=== PATIENT | male | born 1980 | race African-American/Black ===

== ENCOUNTER 2019-09-15 12:16 | Emergency (ER) | payer SELFPAY ==
--- NOTE | 2019-09-15 12:25 | EDM.PDOCBH ---
ED HPI GENERAL MEDICAL PROBLEM - General Chief Complaint: Behavioral/Psych Stated Complaint: PSYCH Time Seen by Provider: 09/15/19 12:25 Source of Information: Reports: Patient History Limitations: Reports: No Limitations - History of Present Illness INITIAL COMMENTS - FREE TEXT/NARRATIVE: HISTORY AND PHYSICAL: History of present illness: Patient is a 38-year-old male who presents to the emergency room by law enforcement for medical screening exam. Patient states that he called a crisis line which she was familiar with in [facility]. He had called this crisis line as he states he is very frustrated and was looking for someone to help him with some legal questions he had regarding child support. He states over the past 5 years he has had problems with his now ex- regarding child support. He has used this crisis line before and states he had felt better after talking with them about his stressors. He called the crisis line today and states he was upset as he was not able to get answers with whom to contact about his child support. Supposedly they had asked if he was suicidal and he made the comment that he was so frustrated he "just might be". The [place] support line called our local PD who then went to check on the patient. Patient denied having any thoughts of self-harm or suicide. He states he was frustrated with trying to get answers regarding some legalities of his child support. Review of systems: As per history of present illness and below otherwise all systems reviewed and negative. Past medical history: As per history of present illness and as reviewed below otherwise noncontributory. Surgical history: As per history of present illness and as reviewed below otherwise noncontributory. Social history: See social history for further information Family history: As per history of present illness and as reviewed below otherwise noncontributory. Physical exam: General: Well developed and well nourished 38-year-old -[place] male. Alert and oriented. Nontoxic appearing and in no acute distress. HEENT: Atraumatic, normocephalic, pupils equal and reactive bilaterally, negative for conjunctival pallor or scleral icterus, mucous membranes moist, TMs normal bilaterally, throat clear, neck supple, nontender, trachea midline. No drooling or trismus noted. No meningeal signs. No hot potato voice noted. Lungs: Clear to auscultation, breath sounds equal bilaterally, chest nontender. Heart: S1S2, regular rate and rhythm without overt murmur Abdomen: Soft, nondistended, nontender. Negative for masses or hepatosplenomegaly. Negative for costovertebral tenderness. Pelvis: Stable nontender. Skin: Intact, warm, dry. No lesions or rashes noted. Extremities: Atraumatic, moves all extremities per self without difficulty or deficits, negative for cords or calf pain. Neurovascular unremarkable. Neuro: Awake, alert, oriented. Cranial nerves II through XII unremarkable. Cerebellum unremarkable. Motor and sensory unremarkable throughout. Exam nonfocal. Notes: Rule out development officer who is with the patient states he has spent the last hour with him and has no concerns of him being suicidal. He is not under arrest but rather he is here to make sure the patient has a ride back home as he is the one who brought him for medical screening exam. Patient was asked on multiple occasions by different people if he had any intention of self-harm or suicide and he refuses. He states he is a spiritual man and is against suicide. Vital signs are stable. I do not feel this man is a threat to himself or others. Supportive care measures were reviewed and discussed. Voices understanding and is agreeable to plan of care. Denies any further questions or concerns at this time. Diagnostics: None Therapeutics: None Prescription: None Impression: Encounter for medical screening exam Stress Plan: 1. You have contracted for safety. If for some reason you feel unsafe or have thoughts of harming yourself, please contact the crisis line. 2. Return to the ED as needed and as discussed. Definitive disposition and diagnosis as appropriate pending reevaluation and review of above. - Related Data Allergies Allergy/AdvReac Type Severity Reaction Status Date / Time No Known Allergies Allergy Verified 09/15/19 12:29 Home Meds: Home Meds . [No Known Home Meds] 09/15/19 [History] ED ROS GENERAL - Review of Systems Review Of Systems: Comprehensive ROS is negative, except as noted in HPI. ED EXAM, BEHAVIORAL HEALTH - Physical Exam Exam: See Below (See dictation) COURSE, BEHAVIORAL HEALTH COMP - Course Vital Signs: Last Vital Signs Temp 98.2 F 09/15/19 12:52 Pulse 78 09/15/19 12:52 Resp 16 09/15/19 12:52 BP 142/84 H 09/15/19 12:52 Pulse Ox 96 09/15/19 12:52 Departure - Departure Time of Disposition: 12:39 Disposition: Home, Self-Care 01 Clinical Impression: Stress due to family tension, Encounter for medical screening examination - Discharge Information Instructions: Medical Screening Exam Referrals: PCP,None [Primary Care Provider] - Forms: ED Department Discharge Additional Instructions: The following information is given to patients seen in the emergency department who are being discharged to home. This information is to outline your options for follow-up care. We provide all patients seen in our emergency department with a follow-up referral. The need for follow-up, as well as the timing and circumstances, are variable depending upon the specifics of your emergency department visit. If you don't have a primary care physician on staff, we will provide you with a referral. We always advise you to contact your personal physician following an emergency department visit to inform them of the circumstance of the visit and for follow-up with them and/or the need for any referrals to a consulting specialist. The emergency department will also refer you to a specialist when appropriate. This referral assures that you have the opportunity for follow-up care with a specialist. All of these measure are taken in an effort to provide you with optimal care, which includes your follow-up. Under all circumstances we always encourage you to contact your private physician who remains a resource for coordinating your care. When calling for follow-up care, please make the office aware that this follow-up is from your recent emergency room visit. If for any reason you are refused follow-up, please contact the [facility] Emergency Department at and asked to speak to the emergency department charge nurse. [facility] [address] [place] [address] [id number] [address] [address] 1. You have contracted for safety. If for some reason you feel unsafe or have thoughts of harming yourself, please contact the crisis line. 2. Return to the ED as needed and as discussed. Sepsis Event Note - Focused Exam Vital Signs: Vital Signs Temp Pulse Resp BP Pulse Ox 09/15/19 12:52 98.2 F 78 16 142/84 H 96 09/15/19 12:26 98.5 F 16 Date Exam was Performed: 09/15/19 Time Exam was Performed: 15:25
== END 2019-09-15 12:53 | disposition home or self-care (01) ==
LOC: MW.ED 12:16
DX: Z63.79 Other stressful life events affecting family and household (principal)
CPT/HCPCS: 99282

== ENCOUNTER 2025-01-15 15:13 | Emergency (ER) | payer SELFPAY ==
[2025-01-15 16:24] LABS: BASOPHILS ABSOLUTE AUTO 0.03 K/uL (0.00-0.20); BASOPHILS PERCENT AUTO 0.5 % (0.0-1.0); EOSINOPHILS ABSOLUTE AUTO 0.21 K/uL (0.00-0.45); EOSINOPHILS PERCENT AUTO 3.7 % (0.0-6.0); HEMATOCRIT 42.4 % (42.0-52.0); HEMOGLOBIN 14.7 g/dL (14.0-18.0); IMMATURE GRAN ABSOLUTE AUTO 0.02 K/uL (0.00-0.05); IMMATURE GRAN PERCENT AUTO 0.4 % (0.0-0.4); LYMPHOCYTES PERCENT AUTO 47.9 % (24.0-44.0); MEAN CORPUSCULAR HEMOGLOBIN 30.9 pg (28.0-32.0); MEAN CORPUSCULAR HGB CONC 34.7 g/dL (32.0-36.0); MEAN CORPUSCULAR VOLUME 89.3 fL (83.0-99.0); MEAN PLATELET VOLUME 9.7 fL (9.4-12.4); MONOCYTES ABSOLUTE AUTO 0.43 K/uL (0.00-0.80); MONOCYTES PERCENT AUTO 7.6 % (0.0-8.0); NEUTROPHILS ABSOLUTE AUTO 2.25 K/uL (1.80-7.70); NEUTROPHILS PERCENT AUTO 39.9 % (41.0-71.0); PLATELET COUNT,PLT 189 K/uL (150-400); RED BLOOD CELL COUNT 4.75 M/uL (4.52-5.90); WHITE BLOOD CELL COUNT,WBC 5.64 K/uL (3.9-11.3)
[2025-01-15 16:25] LABS: APPEARANCE,URINE CLEAR; BILIRUBIN,URINE NEGATIVE (NEGATIVE); COLOR,URINE YELLOW; GLUCOSE,URINE NEGATIVE (NEGATIVE); KETONES,URINE NEGATIVE (NEGATIVE); LEUKOCYTE ESTERASE,URINE NEGATIVE (NEGATIVE); NITRITE,URINE NEGATIVE (NEGATIVE); OCCULT BLOOD,URINE NEGATIVE (NEGATIVE); PH,URINE 6.5 (5.0-8.0); PROTEIN,URINE NEGATIVE (NEGATIVE)
[2025-01-15 16:43] LABS: INR 0.98 (0.86-1.11)
[2025-01-15 16:52] LABS: A/G RATIO 1.1 (0.9-1.6); BILIRUBIN TOTAL 0.4 mg/dL (0.2-1.0); CALCIUM 9.1 mg/dL (8.5-10.1); CARBON DIOXIDE,CO2 26.3 mmol/L (21.0-32.0); CREATININE 1.5 mg/dL (0.8-1.3); EST CRCL DRUG DOSING (CG) 63.5 mL/min; POTASSIUM,K 3.8 mmol/L (3.5-5.1); PROTEIN TOTAL,TP 7.7 g/dL (6.4-8.2)
[2025-01-15] MEDS: Lidocaine 4% Patch TOP ONE (17:14)
[2025-01-15] MEDS: Acetaminophen 500 MG Tab PO ONE (17:14)
[2025-01-15] MEDS: Dexamethasone 4 MG Tab PO ONE (17:14)
[2025-01-15] MEDS: Ketorolac 30 MG/ML SDV IM ONE (17:17)
== END 2025-01-15 18:28 | disposition home or self-care (01) ==
LOC: MW.ED 15:13
DX: M54.41 Lumbago with sciatica, right side (principal); G89.29 Other chronic pain; R79.89 Other specified abnormal findings of blood chemistry; Z75.3 Unavailability and inaccessibility of health-care facilities
CPT/HCPCS: 36415; 72131; 80053; 80061; 81003; 82550; 85025; 85610; 96372; 99284; A9270; J1885; J8540; 99283